=== PATIENT | male | born 2000 | race Caucasian/White ===

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

== ENCOUNTER 2024-03-22 20:01 | Emergency (ER) | payer OTHER, SELFPAY ==
[2024-03-22] VITALS (8 sets, daily range): BP systolic 111–140; BP diastolic 65–88; PULSE 79–117; RESP 16; TEMP 37.3–38.7; O2SAT 96–100; BMI 25.2
--- NOTE | 2024-03-22 20:24 | HMH.EDGENADL ---
Discharge Plan Disposition Patient Disposition: Home, Self-Care Prescriptions Prescriptions: New fhgkfsikfphhuro-ynmgjouog-VH 2-30-10 mg/5 mL syrup 5 ml PO Q6H PRN (Reason: cold symptoms) 7 Days Qty: 118 0RF ondansetron 4 mg tablet,disintegrating 4 mg PO Q6H PRN (Reason: nausea and vomiting) 5 Days Qty: 20 0RF No Action multivitamin [Multiple Vitamin] Tablet 1 tab PO DAILY Referrals Follow up/Referrals: Provider,Referral, MD [Primary Care Provider] - See instructions Activity Restrictions/Add. Instructions Additional Instructions/Restrictions: Your symptoms today are consistent with a viral syndrome secondary to influenza A. As discussed you have no significant comorbidities making you high risk for complications therefore antiviral medications are not indicated for you and this should be self-limiting. We will treat your symptoms with supportive care. Please take 1000 mg of Tylenol and 800 mg of ibuprofen kanx-xcs-oytipra 3 times a day with food over the next several days and then as needed after that. Additionally I will prescribe cough medicine and nausea medicine for you. Drink plenty of aggressive fluids including Gatorade and Powerade until your urine is clear and return with any significant worsening of her symptoms. Clinical Impressions Clinical Impression: Influenza A, Acute viral syndrome Print Language Print Language: Swedish Discharge ED Provider: Jose Lloyd General Adult HPI General Chief complaint: Fever Stated complaint: headache,weakness,body aches Time Seen by Provider: 03/22/24 20:12 Mode of Arrival: Ambulatory Source of Information: Patient Limitations: No Limitations Description of Symptoms (Recalled from ER Triage Doc. by RN): c/o severe headache with severe headache, sorethroat, cough with white sputum since this am. Reports shortness of breath. Denies any n/v/d/ History of Present Illness HPI narrative: Patient is a 23-year-old college student who presents today with a headache that he states is severe sore throat cough body aches little bit of lightheadedness for the last 24 hours. Recently stopped smoking. Has been in the gym regularly. Denies any other significant past medical history. Related Data Home Medications ?Medication ?Instructions ?Recorded ?Confirmed multivitamin 1 tab PO DAILY 03/22/24 03/22/24 Previous Rx's ?Medication ?Instructions ?Recorded wvbepjcvdyukeum-hrjzolvjgtwmxkz-JO 5 ml PO Q6H PRN cold symptoms 7 03/22/24 2 mg-30 mg-10 mg/5 mL oral syrup days #118 mL ondansetron 4 mg disintegrating 4 mg PO Q6H PRN nausea and 03/22/24 tablet vomiting 5 days #20 tabs Allergies Allergy/AdvReac Type Severity Reaction Status Date / Time latex Allergy Mild Verified 09/21/18 08:09 [facility] Disclaimer: The information contained in this section may have been updated after the patient was seen, as this information can be updated by other users. Medical History Club foot Social History Smoking Status: Former smoker second hand exposure: No alcohol intake: never current occupational status: student Travel in the last 8 weeks: None household members: family housing: house current occupational exposures/hazards: No caffeine: Yes Have you lived/traveled outside [place] in past 30 days?: No Contact w/someone who lives/traveled outside [place] past 30 days?: No Exposure to someone with infectious disease in past 14 days?: No Do you have a fever (greater than 100.4 F or 38 C)?: No Have you tested positive for COVID-19: No Exposed to someone with COVID-19 in past 14 days?: No Do you have a sore throat?: No Do you have a cough?: No Do you have any weakness?: Yes Do you have any diarrhea?: No Are you experiencing any unusual bleeding?: No Do you have any muscle aches/pain?: Yes Do you have any abdominal pain?: No Are you experiencing loss of taste or smell?: No Other Medical History Have you received the Pneumonia Vaccine: No ROS Obtained: Yes All systems reviewed & no additional complaints except as documented Physical Exam General General appearance: alert and in no apparent distress Neck Neck exam: Present full ROM; Absent meningismus Respiratory Respiratory exam: Present normal lung sounds bilaterally and respiratory distress Cardiovascular Cardiovascular exam: Present normal rhythm and tachycardia Neurological Exam Neurological exam: Present alert and oriented X3 Medical Decision Making Medical Records Screening: Per USPSTF and CDC recommendations, given the prevalence of disease in our region, it is our hospital?s policy to screen for HIV and viral Hepatitis for all patients aged 18 and over and those with ongoing risk factors. Torin Inquiry Pt receiving controlled substance: No Vital Signs: 03/22/24 20:05 03/22/24 20:07 03/22/24 20:37 Temperature 101.3 F H 101.6 F H Temperature Source Oral Oral Pulse Rate 117 H 101 H Pulse Rate [Left Brachial] 106 H Respiratory Rate 16 16 Blood Pressure 140/88 112/72 Blood Pressure [Left Radial Artery] 140/88 Blood Pressure Mean [Left Radial Artery] 105 Blood Pressure Source Automatic Cuff Blood Pressure Source [Left Radial Artery] Automatic Cuff Blood Pressure Position Sitting Blood Pressure Position [Left Radial Artery] Sitting 02 Sat by Pulse Oximetry 100 100 100 Oxygen Delivery Method Room Air Room Air 03/22/24 20:38 03/22/24 21:01 03/22/24 21:25 Temperature Temperature Source Pulse Rate 106 H 107 H 96 H Pulse Rate [Left Brachial] Respiratory Rate 16 Blood Pressure 112/72 133/81 133/81 Blood Pressure [Left Radial Artery] Blood Pressure Mean [Left Radial Artery] Blood Pressure Source Automatic Cuff Blood Pressure Source [Left Radial Artery] Blood Pressure Position Sitting Blood Pressure Position [Left Radial Artery] 02 Sat by Pulse Oximetry 100 97 97 Oxygen Delivery Method Room Air 03/22/24 21:30 Temperature Temperature Source Pulse Rate 96 H Pulse Rate [Left Brachial] Respiratory Rate Blood Pressure 122/65 Blood Pressure [Left Radial Artery] Blood Pressure Mean [Left Radial Artery] Blood Pressure Source Blood Pressure Source [Left Radial Artery] Blood Pressure Position Blood Pressure Position [Left Radial Artery] 02 Sat by Pulse Oximetry 96 Oxygen Delivery Method Lab Data Lab results reviewed: Yes I reviewed the patient's lab results. Lab Results 03/22/24 20:12: WBC 9.9, RBC 4.68, Hgb 14.5, Hct 42.5, MCV 90.8, MCH 31.0, MCHC 34.1, RDW 12.0, Plt Count 242, MPV 10.2, Neut % (Auto) 82.8 H, Lymph % (Auto) 5.7 L, [place] % (Auto) 10.3 H, Eos % (Auto) 0.4, Baso % (Auto) 0.4, Neut # (Auto) 8.2 H, Lymph # (Auto) 0.6 L, [place] # (Auto) 1.0, Eos # (Auto) 0.0, Baso # (Auto) 0.0, Sodium 136, Potassium 3.8, Chloride 99, Carbon Dioxide 27, Anion Gap 13.8, BUN 11, Creatinine 0.80, Estimated Creat Clear 165, Estimated GFR 122, Est GFR ( Amer) 148, Glucose 98, Calcium 9.5, Total Bilirubin 0.5, AST 33, ALT 32, Alkaline Phosphatase 86, Total Protein 7.5, Albumin 4.9, Globulin 2.6, Albumin/Globulin Ratio 1.9 H 03/22/24 20:14: SARS-CoV-2 (PCR) Not detected, Influenza A Untype (PCR) Detected A, Influenza Type B (PCR) Not detected 03/22/24 20:12 03/22/24 20:12 Orders (Tests/Meds): ED MEDICATIONS Discontinued Medications Generic Name Dose Route Start Last Admin Trade Name Freq PRN Reason Stop Dose Admin Acetaminophen 1,000 mg 03/22/24 20:22 03/22/24 20:26 Acetaminophen 1,000mg/100ml Vial IV 03/22/24 20:23 1,000 mg ONCE ONE Administration Lactated Ringer's 1,000 mls @ 999 mls/hr 03/22/24 20:30 03/22/24 20:27 Lactated Ringer's 1000 Ml Bag IV 03/22/24 21:30 999 mls/hr .Q1H1M ROMA Administration Ketorolac Tromethamine 15 mg 03/22/24 20:22 03/22/24 20:27 Ketorolac 30mg/Ml Vial IV 03/22/24 20:23 15 mg ONCE ONE Administration ORDERS Category Date Time Status CBC w/Auto Diff [Complete Blood Count Auto Diff] Stat Lab 03/22/24 20:12 Completed CMP [Comprehensive Metabolic Panel] Stat Lab 03/22/24 20:12 Completed HIV Combo Stat Lab 03/22/24 20:12 Received Hepatitis C Ab Qual. W/ RFX Stat Lab 03/22/24 20:12 Received Rapid PCR Covid and Flu A/B Stat Lab 03/22/24 20:14 Completed Strep Scrn Group A (Rapid) Stat Lab 03/22/24 20:23 Ordered Medical Decision Narrative: 23-year-old presents today with most likely viral illness very nontoxic in appearance however he is significantly tachycardic heart rate 120 my exam he is also febrile. Complains of a severe headache in the setting of other viral symptoms including cough body aches sore throat etc. Will swab him for strep COVID and flu administer IV fluids IV Tylenol and Toradol and reassess. Respiratory exam is normal oxygen saturations are normal I do not suspect pneumonia. Additionally he has no meningismus and is nontoxic I do not suspect bacterial meningitis. Reassessment 10:06 PM patient appears very well on reassessment vital signs of improved states that he feels much better no meningismus serial neurologic and general appearance exams are normal. Labs unremarkable aside from influenza being positive. He is not in the high risk category that would require antiviral therapy therefore we will not be treating that but will give him supportive care. Prescription for Bromfed and Zofran has been sent to his pharmacy has been advised to take Tylenol and ibuprofen return precautions emphasized he is also been advised to drink plenty of fluids and patient was discharged in improved and stable condition. Critical Care Critical Care Time Critical Care Time: No
[2024-03-22] MEDS: ACETAMINOPHEN 1,000MG/100ML VIAL 1000 MG IV (20:26)
[2024-03-22] MEDS: LACTATED RINGERS 1000ML 1,000 ML 999 ML IV (20:27)
[2024-03-22] MEDS: KETOROLAC 30MG/ML VIAL 15 MG IV (20:27)
[2024-03-22 20:28] LABS: Coronavirus 19, PCR Not Detected (NotDetected); Influenza B, PCR Not Detected (NotDetected)
[2024-03-22 20:29] LABS: Basophils % 0.4 % (0.1-2.0); Eosinophils % 0.4 % (0.1-12.0); Hematocrit 42.5 % (42.0-52.0); Hemoglobin 14.5 g/dL (14.1-18.0); Lymphocytes # 0.6 K/mm3 (0.7-4.5); Lymphocytes % 5.7 % (10-50); Mean Corpuscular HGB Conc 34.1 g/dL (31.8-35.4); Mean Corpuscular Volume 90.8 fl (80-94); Mean Platelet Volume 10.2 fl (7.4-10.4); Monocytes % 10.3 % (1.7-9.3); Neutrophils # 8.2 K/mm3 (1.8-7.8); Neutrophils % 82.8 % (37.0-80.0); Platelet Count 242 K/mm3 (142-424); Red Blood Count 4.68 M/mm3 (4.60-6.20); White Blood Count 9.9 K/mm3 (4.8-10.8)
[2024-03-22 20:32] LABS: Chloride 99 mmol/L (98-107)
[2024-03-22 20:33] LABS: Albumin Level 4.9 g/dl (3.5-5.0); Potassium 3.8 mmoL/L (3.5-5.1); Sodium 136 mmol/L (136-145)
[2024-03-22 20:35] LABS: Alanine Aminotransferase 32 U/L (12-78); Anion Gap 13.8 mEq/L (5-15); Aspartate Amino Transferase 33 U/L (17-59); Blood Urea Nitrogen 11 mg/dl (9-20); Carbon Dioxide 27 mmol/L (22.0-30.0); Creatinine Clearance Estimated 165 mL/min (50-200); Estimated Glomerular Filt Rate 122 ml/min (>60); GFR (African American) 148 ML/MIN (>60)
[2024-03-22 20:36] LABS: Albumin/Globulin Ratio 1.9 (1.1-1.8); Alkaline Phosphatase 86 U/L (38-126); Bilirubin,Total 0.5 mg/dl (0.2-1.3); Calcium 9.5 mg/dl (8.4-10.2); Globulin 2.6 g/dL (1.3-3.2); Glucose 98 mg/dl (74-100); Total Protein,Serum 7.5 g/dl (6.3-8.2)
[2024-03-22 21:38] LABS: Influenza A, PCR Detected (NotDetected)
[2024-03-22 21:41] LABS: HIV Combo NEGATIVE (Negative)
[2024-03-22 21:50] LABS: Hepatitis C Ab Qual. W/ RFX NEGATIVE (Negative)
--- NOTE | 2024-03-22 22:00 | PC.NURSE ---
IN ROOM WITH PATIENT
== END 2024-03-22 22:19 | disposition home or self-care (01) ==
PROVIDERS: Emergency Provider Student in an Organized Health Care Education/Training Program
DX: J10.1 Influenza due to other identified influenza virus with other respiratory manifestations (principal); B34.9 Viral infection, unspecified; R51.9 Headache, unspecified; R05.9 Cough, unspecified; M79.10 Myalgia, unspecified site; R42 Dizziness and giddiness; R53.1 Weakness; Z87.891 Personal history of nicotine dependence
CPT/HCPCS: 80053; 85025; 86803; 87389; 87636; 96360; 96374; 96375; 99283; J0131; J1885; J7120